=== PATIENT | female | born 1990 | race Caucasian/White ===

== ENCOUNTER 2020-05-29 18:29 | Inpatient (IN) | payer MEDICAID ==
[~2020-05-29 18:29] MED LIST: KETOROLAC TROMETHAMINE 60 MG/2 ML SDV ONE; ONDANSETRON HCL INJ/PF 4 MG/2 ML SDV ONE; PHENYLEPHRINE HCL INJ/PF 10 MG/1 ML SDV ONE
[2020-05-29] MEDS ORDERED: RINGERS SOLUTION,LACTATED 1,000 ML IV PRN ×2 (19:18→21:05)
[2020-05-29] MEDS ORDERED: RINGERS SOLUTION,LACTATED 1,000 ML IV ONE (19:18)
--- NOTE | 2020-05-29 19:40 | Admission Physical ---
Datetime Report Generated by CPN: 05/29/2020 19:40 CURRENT ADMISSION Chief Complaint: Suspected Ruptured Membranes Indication for Induction: Not Applicable Admit Impression : , Intrauterine ; Ruptured Membranes Admit Plan: Initiate Section Protocol ALLERGIES Medication Allergies: No Medication Allergies: No Known Allergies (05/29/2020) Latex: No Latex Allergies Food Allergies: NKFA Environmental Allergies: Some adhesives/tapes OBSTETRICAL HISTORY EDC: 06/21/2020 00:00 : 4 Para: 1 Term: 1 : 0 SAB: 2 IAB: 0 Ectopic: 0 Livin Cesareans: 1 VBACs: 0 Multiple Births: 0 Hx Previous C/S: Yes Obstetrical History Comments: G1 12/15/08 BB 37weeks breech presentation, pre-eclampsia PCS, spinal G2 SAB 10/2010 G3 SAB 03/01/2012 G4 Current SEE RECORDS Alcohol: No Marijuana : No Cocaine: No Other Illicit Drugs: No Cigarettes: Former Smoker. [id number] PHYSICAL EXAM General: Normal HEENT: Normal Neurologic: Normal Thyroid: Normal Heart: Normal Lungs: Normal Breast: Deferred Back: Normal Abdomen: Normal Genitourinary Exam: Normal Extremities: Normal DTRs: Normal Pelvic Type: Adequate FETUS A EGA: 36.5 INFORMED CONSENT Signature: with User ID: [email or web address]
[2020-05-29 19:47] LABS: ABSOLUTE EOSINOPHILS # (AUTO) 0.2 10^3/uL (0.0-0.6); ABSOLUTE LYMPHOCYTES (AUTO) 1.7 10^3/uL (0.5-4.7); ABSOLUTE MONOCYTES (AUTO) 0.6 10^3/uL (0.1-1.4); ABSOLUTE NEUT (AUTO) 6.7 10^3/uL (1.7-8.2); BASOPHILS % (AUTO) 0.2 % (0-2); EOSINOPHILS % (AUTO) 2.1 % (0-6); HEMATOCRIT 34.1 % (36.0-47.0); HEMOGLOBIN 11.3 g/dL (12.0-15.5); LYMPHOCYTES % (AUTO) 18.2 % (13-45); MEAN CORPUSCULAR HEMOGLOBIN 24.9 pg (27.0-33.4); MEAN CORPUSCULAR HGB CONC 33.2 g/dL (32.0-36.0); MEAN CORPUSCULAR VOLUME 75 fl (80-97); MONOCYTES % (AUTO) 6.3 % (3-13); PLATELET COUNT 226 10^3/uL (150-450); RED BLOOD COUNT 4.55 10^6/uL (3.72-5.28); RED CELL DISTRIBUTION WIDTH 14.7 % (11.5-14.0); SEGMENTED NEUTROPHILS % (AUTO) 73.2 % (42-78); TOTAL CELLS COUNTED % (AUTO) 100 %; WHITE BLOOD COUNT 9.2 10^3/uL (4.0-10.5)
[2020-05-29] MEDS ORDERED: CEFAZOLIN 2 GM/D5W RTU 2 GM/50 ML RTUPB IV ONE (20:03)
[2020-05-29] MEDS ORDERED: CITRIC ACID/SODIUM CITRATE ORAL SOLN 15 ML UDCUP ONE (20:03)
[2020-05-29] MEDS ORDERED: ACETAMINOPHEN 1,000 MG/100 ML RTUPB IV ONE (20:03)
[2020-05-29] MEDS ORDERED: OXYTOCIN 10 UNIT/ML VIAL ONE (20:08)
[2020-05-29 20:12] LABS: APPEARANCE,URINE SLIGHTLY-CLOUDY; BILIRUBIN,URINE NEGATIVE (NEGATIVE); COLOR,URINE YELLOW; GLUCOSE, URINE NEGATIVE (NEGATIVE); KETONES,URINE NEGATIVE (NEGATIVE); LEUKOCYTE ESTERASE,URINE NEGATIVE (NEGATIVE); NITRITE,URINE NEGATIVE (NEGATIVE); PROTEIN,URINE 100 mg/dL (NEGATIVE); URINE SPECIFIC GRAVITY 1.023
[2020-05-29 20:30] LABS: URINE AMPHETAMINES SCREEN NEGATIVE; URINE BARBITURATES SCREEN NEGATIVE; URINE BENZODIAZEPINES SCREEN NEGATIVE; URINE MARIJUANA (THC) SCREEN NEGATIVE; URINE METHADONE SCREEN NEGATIVE; URINE PHENCYCLIDINE SCREEN NEGATIVE
[2020-05-29 20:40] LABS: URINE COCAINE SCREEN NEGATIVE
[2020-05-29] MEDS ORDERED: OXYTOCIN/0.9 % SODIUM CHLORIDE 30 UNIT/500 ML RTUINJ IV PRN (21:05)
[2020-05-29] MEDS ORDERED: ACETAMINOPHEN 1,000 MG/100 ML RTUPB IV PRN (21:05)
[2020-05-29] MEDS ORDERED: SIMETHICONE 80 MG TAB.CHEW PO PRN (21:05)
[2020-05-29] MEDS ORDERED: MORPHINE SULFATE 10 MG/ML INJ IM PRN (21:05)
[2020-05-29] MEDS ORDERED: MEASLES,MUMPS&RUBELLA VACC/PF 0.5 ML VIAL SUBCUT PRN (21:05)
[2020-05-29] MEDS ORDERED: DIPH/PERTUSS(ACELL)/TETANUS VAC/PF 0.5 ML SYR (>=10YO) IM PRN (21:05)
[2020-05-29] MEDS ORDERED: ACETAMINOPHEN 325 MG TABLET PO PRN (21:05)
[2020-05-29] MEDS ORDERED: PROMETHAZINE HCL INJ 25 MG/1 ML VIAL IV PRN (21:05)
--- NOTE | 2020-05-29 21:05 | Operative Report ---
Operative Report DATE OF SURGERY: 05/29/20 PREOPERATIVE DIAGNOSIS: IUP prior and rupture membranes POSTOPERATIVE DIAGNOSIS: Same OPERATION: Repeat low transverse delivery of a viable male weight 8 pounds 4 ounces SURGEON: KATE VALLES ANESTHESIA: Spinal TISSUE REMOVED OR ALTERED: Placenta ESTIMATED BLOOD LOSS: 1000 cc PROCEDURE: The patient was taken to the operating room where spinal anesthesia was obtained and found to be adequate. She was then prepped and draped in the normal sterile fashion and placed in the dorsal supine position with a leftward tilt. A Pfannenstiel skin incision was then made and carried through to the underlying layers of the fascia with the scalpel. The fascia was incised in the midline and the incision extended laterally with the Deshpande scissors. The superior aspect of the fascial incision was then grasped with Jordin clamps elevated and the underlying rectus muscles dissected off bluntly. Attention was then turned to the inferior aspect of the fascial incision which in a similar fashion was grasped, tented up with Khushboo clamps, and the rectus muscles dissected off bluntly. The rectus muscles were then in the midline and the peritoneum at the amount identified and entered bluntly. The peritoneal incision was then extended superiorly and inferiorly with good visualization of the bladder. [The bladder blade was inserted and the vesicouterine peritoneum identified grasped with [place] Islander pickups and entered sharply with the Metzenbaum scissors. His incision was then extended laterally with the Metzenbaum scissors and a bladder flap created digitally. The bladder blade was then reinserted and the lower uterine segment incised in a transverse fashion with the scalpel. The uterine incision was then extended bluntly. The bladder blade was removed and the infant's head was delivered from cephalic presentation atraumatically. The nose and mouth were suctioned and the cord doubly clamped and cut. And the was handed off to waiting pediatricians. The placenta was then delivered manully and the uterus exteriorized and cleared of all clots and debris. The uterine incision was then repaired with 1-0 Vicryl in a running locked fashion. A second layer of the same suture was used to obtain hemostasis via imbrication of the initial layer. The uterus was returned to the patient's abdomen. The gutters were cleared of all clots and debris. All operative sites were noted to be hemostatic. The fascia was reapproximated with 0 Vicryl in a running fashion from each lateral edge to the midline. The patient tolerated the procedure well. Sponge lap needle and instrument counts are correct -2. 2 g of Ancef were given prior to skin incision. The patient was taken to the recovery area awake and in stable condition.
--- NOTE | 2020-05-29 21:56 | Delivery Summary ---
Del Sum A-C Datetime Report Generated by CPN: 05/29/2020 21:56 DELIVERY PERSONNEL DELIVERY PERSONNEL: [id number] Delivery Doctor:: Beau Dent MD ORTHOPEDIC CODER:: Lorena ORTHOPEDIC CODER Labor and Delivery Nurse:: JAMESON Alex Qi Specialist:: Vandana Neal, RNC Nurse Practitioner:: LAN Devi Nursery Nurse:: Pippa Red RN Systems Technician/RETAIL SALES CONSULTANT: Varsha Smith, SANITATION ENGINEER Systems Technician/RETAIL SALES CONSULTANT: Pat Ross, ST MATERNAL INFORMATION Delivery Anesthesia: Spinal Estimated Blood Loss (ml): 500 Maternal Complications: Premature Rupture of Membranes LABOR SUMMARY EDC: 06/21/2020 00:00 No. Babies in Womb: 1 Attempted: No Labor Anesthesia: None LABOR INFORMATION Reason for Induction: Not Applicable Oxytocin: N/A Group B Beta Strep: Positive Antibiotics # of Doses: 0 Antibiotics Time of Last Dose: 05/29/2020 20:19 Name of Antibiotic Given: Ancef 2018 MEMBRANES Membranes Rupture Method: Spontaneous Rupture of Membranes: 05/29/2020 17:30 Length of Rupture (hr): 3.15 Amniotic Fluid Color: Clear Amniotic Fluid Amount: Moderate Amniotic Fluid Odor: None STAGES OF LABOR Stage 3 hr: 0 Stage 3 min: 1 VAGINAL DELIVERY Episiotomy: None Laceration #1: None Laceration Extension #1: N/A Sponge Count Correct: Yes Sharps Count Correct: Yes CSECTION DELIVERY Primary Indication: Repeat Elective Secondary Indication: ROM CSection Urgency: Non-Scheduled CSection Incidence: Repeat Labor: No Labor Elective: Elective CSection Incision: Lower Uterine Transverse BABY A INFORMATION Delivery Date/Time: 05/29/2020 20:39 Method of Delivery: Nurse Controlled Delivery: No Born in Route : No : N/A Forceps: N/A Vacuum Extraction: N/A Shoulder Dystocia : No PRESENTATION/POSITION BABY A Presentation: Cephalic Cephalic Presentation: Vertex Breech Presentation: N/A PLACENTA INFORMATION BABY A Placenta Delivery Time : 05/29/2020 20:40 Placenta Method of Delivery: Spontaneous Placenta Status: Delivered SCORES BABY A Heart Rate 1 min: >100 bpm Resp Effort 1 min: Slow, Irregular Reflex Irritability 1 min: Cough or Sneeze or Pulls Away Muscle Tone 1 min: Active Motion Color 1 min: Body [place], Extremities Blue SCORE 1 MIN: 8 Heart Rate 5 min: >100 bpm Resp Effort 5 min: Good Cry Reflex Irritability 5 min: Cough or Sneeze or Pulls Away Muscle Tone 5 min: Active Motion Color 5 min: Body [place], Extremities Blue SCORE 5 MIN: 9 INFORMATION BABY A Gestational Age at Delivery: 36.5 Gestational Status: Late - 34- 36.6 Weeks Infant Outcome : Liveborn Infant Condition : Stable Sex: Male WEIGHT/LENGTH BABY A Infant Birthweight (gm): 3755 Weight (lb): 8 Weight (oz): 4 Length (in): 20.00 Length (cm): 50.80 CORD INFORMATION BABY A No. Cord Vessels: 3 Nuchal Cord : N/A Cord Blood Taken: Yes-For Storage (Mom's Blood type +) Infant Suction: Mouth; Nose ASSESSMENT BABY A Complications: None Physical Findings at Delivery: Within Normal Limits Skin to Skin: Yes Skin to Skin Time (min): 30 Transferred To: Nursery BABY B INFORMATION : N/A SIGNATURES Signature: with User ID: [email or web address]
--- NOTE | 2020-05-29 21:56 | Birth Certificate Data ---
Cert Data Datetime Report Generated by CPRuth: 05/29/2020 21:56 CERTIFICATE DATA Delivery Provider: Beau Dent MD (05/29/2020 21:37:Vandana Neal RNC) 47a. Care: Yes (05/29/2020 18:45:Matilde Jason RN) 47b. Date of First Visit: 12/13/2019 00:00 (05/29/2020 18:45:Matilde Jason RN) 47c. Date of Last Visit: 05/29/2020 00:00 (05/29/2020 18:45:Matilde Jason RN) 47d. Number of Visits: 9 (05/29/2020 18:45:Matilde Jason RN) 48a. Number of Prev Live Births: 1 (05/29/2020 18:45:Matilde Jason RN) 48b. Now Livin (05/29/2020 18:45:Matilde Jason RN) 48c. Live Births Now : 0 (05/29/2020 18:45:QS system process) 48d. Date of Last Live : 12/15/2008 00:00 (05/29/2020 18:45:Matilde Jason RN) 48e. Losses: 2 (05/29/2020 18:45:Matilde Jason RN) 48f. Date of Last Preg Loss: 03/01/2012 00:00 (05/29/2020 18:45:Matilde Jason RN) RISK FACTORS IN THIS 49a. Diabetes: No (05/29/2020 18:45:JAMESON Alex) 49b. Hypertension: Yes (05/29/2020 18:45:JAMESON Alex) Type of Hypertension: Gestational (PIH, Pre-eclampsia) (05/29/2020 18:45:Matilde Jason RN) 49c. Previous Births: 0 (05/29/2020 18:45:Matilde Jason RN) 49d. Stillborns: No (05/29/2020 18:45:JAMESON Alex) 49d. IUGR: No (05/29/2020 18:45:JAMESON Alex) 49e. Infertility Treatment: No (05/29/2020 18:45:JAMESON Alex) 49f. Previous Cesareans: 1 (05/29/2020 18:45:Matilde Jason RN) Mother's Height 50b. Height Inches: 62 (05/29/2020 19:18:QS system process) Mother's Weight 51a. Pre- Weight (lbs): 198 (05/29/2020 18:45:Matilde Jason RN) 51b. Weight at Delivery (lbs): 238 (05/29/2020 19:18:QS system process) 52. Dt Last Normal Menses Began: 08/21/2019 00:00 (05/29/2020 18:45:Matilde Jason RN) Infections Present/Treated 53a. Gonorrhea: No (05/29/2020 18:45:JAMESON Alex) Results this Hospital Visit : Negative (05/29/2020 18:45:Matilde Jason RN) 53b. Syphilis: No (05/29/2020 18:45:JAMESON Alex) 53c. Chlamydia: No (05/29/2020 18:45:JAMESON Alex) Results this Hospital Visit: Negative (05/29/2020 18:45:Matilde Jason RN) 53d. Hepatitis B: No (05/29/2020 18:45:JAMESON Alex) Results this Hospital Visit: Negative (05/29/2020 18:45:Matilde Jason RN) 53e. Hepatitis C: Negative (05/29/2020 18:45:Matilde Jason RN) 53h. Mother Tested for HBsAG: Yes (05/29/2020 18:45:Matilde Jason RN) 53i. Date Tested: 12/13/2019 00:00 (05/29/2020 18:45:Matilde Jason RN) 53j. Test Result: Negative (05/29/2020 18:45:Matilde Jason RN) Obstetric Procedures 54a, b, c. Obstetric Procedures: Ultrasound (05/29/2020 18:45:JAMESON Alex) Cigarette Smoking Cigarette Smoking: Former Smoker. [id number] (05/29/2020 18:45:Matilde Jason RN) 55a. 3 Months Before Preg - Ci (05/29/2020 18:45:JAMESON Alex) 55b. 1st Trimester of Preg- Ci (05/29/2020 18:45:JAMESON Alex) 55c. 2nd Trimester of Preg- Ci (05/29/2020 18:45:JAMESON Alex) 55d. 3rd Trimester of Preg- Ci (05/29/2020 18:45:JAMESON Alex) Onset of Labor 56a. PROM >12 Hrs: 3.15 (05/29/2020 18:45:QS system process) 57a. Induction of Labor: N/A (05/29/2020 18:45:JAMESON Alex) 57c. Non-Vertex Presentation A: Vertex (05/29/2020 18:45:JAMESON Alex) 57e. Antibiotics During Labor: 05/29/2020 20:19 (05/29/2020 18:45:JAMESON Alex) 57f. Mat [place] or Temp >100.4: 98.4 (05/29/2020 18:45:JAMESON Alex) 57g. Moderate/Heavy Meconium: Clear (05/29/2020 18:45:JAMESON Alex) 57h. Intolerance of Labor: Repeat Elective (05/29/2020 18:45:Beau Dent MD ([facility])) : ROM (05/29/2020 18:45:Beau Dent MD ([facility])) 57i. Epidural/Spinal Anesthesia: None (05/29/2020 18:45:JAMESON Alex) Method of Delivery 58a. Forceps - Unsuccessful A: N/A (05/29/2020 18:45:JAMESON Alex) 58b. Vacuum - Unsuccessful A: N/A (05/29/2020 18:45:JAMESON Alex) 58c. Presentation at 58c. Presentation at - A : Vertex (05/29/2020 18:45:Vandana Bellavance, RNC) 58c. Presentation at - A : N/A (05/29/2020 18:45:Vandana Bellavance, RNC) 58c. Presentation at - A : Cephalic (05/29/2020 18:45:Vandana Bellavance, RNC) Final Route and Method of Del 58d. Baby A Route/Delivery: (05/29/2020 18:45:Vandana Bellavance, RNC) 58e. Trial of Labor Attempted: No (05/29/2020 18:45:Vandana Bellavance, RNC) 58e. Trial of Labor Attempted A: N/A (05/29/2020 18:45:Vandana Bellavance, RNC) 58e. Trial of Labor Attempted B: N/A (05/29/2020 18:45:Vandana Bellavance, RNC) Maternal Morbidity 59b. 3rd or 4th Degree Lacs: None (05/29/2020 18:45:Vandana Bellavance, RNC) Birthweight Baby A: 3755 (05/29/2020 18:45:Kaylendb Delarosa, RN) 60a. Pounds : 8 (05/29/2020 18:45:QS system process) 60b. Ounces: 4 (05/29/2020 18:45:QS system process) 61. GA at Delivery Baby A: 36.5 (05/29/2020 18:45:Vandana Bellavance, RNC) : Late - 34- 36.6 Weeks (05/29/2020 18:45:QS system process) 62a. 5 Minute Baby A: 9 (05/29/2020 18:45:QS system process)
[2020-05-29] MEDS ORDERED: MORPHINE SULFATE 10 MG/ML INJ ONE (22:14)
[2020-05-29] MEDS ORDERED: OXYTOCIN/0.9 % SODIUM CHLORIDE 30 UNIT/500 ML RTUINJ ONE (23:30)
[2020-05-30] MEDS: KETOROLAC TROMETHAMINE INJ/PF 30 MG/1 ML SDV IV SCH ×3 (00:08→13:56)
[2020-05-30] MEDS: OXYCODONE-ACETAMINOPHEN 5-325 MG TABLET PO PRN ×5 (00:12→22:49)
[2020-05-30] MEDS: IBUPROFEN 800 MG TABLET PO SCH ×5 (01:37→23:00)
[2020-05-30 08:38] LABS: HEMATOCRIT 23.8 % (36.0-47.0); MEAN CORPUSCULAR HEMOGLOBIN 24.9 pg (27.0-33.4); MEAN CORPUSCULAR VOLUME 76 fl (80-97); PLATELET COUNT 190 10^3/uL (150-450); RED BLOOD COUNT 3.15 10^6/uL (3.72-5.28); RED CELL DISTRIBUTION WIDTH 14.4 % (11.5-14.0); WHITE BLOOD COUNT 10.9 10^3/uL (4.0-10.5)
[2020-05-30 08:47] LABS: HEMOGLOBIN 7.8 g/dL (12.0-15.5)
[2020-05-30] MEDS ORDERED: NORMAL SALINE 250 ML IV PRN ×4 (09:09→20:17)
[2020-05-30] MEDS: PRENATAL VITAMIN W DHA CAPSULE PO SCH (09:40)
[2020-05-30] MEDS: DOCUSATE SODIUM 100 MG CAPSULE PO SCH ×2 (09:40→17:34)
--- NOTE | 2020-05-30 11:05 | PDOC PROGRESS REPORT ---
Subjective-OB Progress Note for:: 05/30/20 Subjective: Doing well, no c/o, discussed with pt anemia and need to receive blood and she agrees, eating and drinking well, Physical Exam (OB) Vital Signs: Temp Pulse Resp BP Pulse Ox 97.9 F 114 H 18 135/74 H 99 05/30/20 09:05 05/30/20 07:00 05/30/20 07:00 05/30/20 07:00 05/30/20 07:00 Intake & Output 05/29/20 05/30/20 05/31/20 06:59 06:59 06:59 Intake Total 500 0 Output Total 210 100 Balance 290 -100 Weight 107.8 kg - PIH/Pre-Eclampsia Clonus: Negative Headache: Absent Epigastric Pain: No Visual Changes: No - Dressing Removed: No Incision: Dressing, Draining - Maternal Morbidity 59. Maternal Morbidity (serious complications experinced by the mother associated with labor and delivery: Maternal transfusion - Lochia Lochia Amount: Small 10-25 ml Lochia Color: Rubra/Red - Abdomen Description: Firm Hernia Present: No Fundal Description: Firm Fundal Height: u/u - u/2 Abdomen Note: waffle dsg saturated, remove dressing and no bleeding from incision, well approximated, another waffle dsg applied, mother in room with baby Objective-Diagnostic Laboratory: 05/30/20 07:56 05/29/20 05/29/20 05/29/20 19:05 19:22 19:22 WBC 9.2 RBC 4.55 Hgb 11.3 L Hct 34.1 L MCV 75 L MCH 24.9 L MCHC 33.2 RDW 14.7 H Plt Count 226 Seg Neutrophils % 73.2 Urine Color YELLOW Urine Appearance SLIGHTLY-CLOUDY Urine pH 6.0 Ur Specific [place] 1.023 Urine Protein 100 H Urine Glucose (UA) NEGATIVE Urine Ketones NEGATIVE Urine Blood NEGATIVE Urine Nitrite NEGATIVE Ur Leukocyte Esterase NEGATIVE Blood Type B POSITIVE Antibody Screen NEGATIVE 05/30/20 07:56 WBC 10.9 H RBC 3.15 L Hgb 7.8 L D Hct 23.8 L MCV 76 L MCH 24.9 L MCHC 33.0 RDW 14.4 H Plt Count 190 Seg Neutrophils % Urine Color Urine Appearance Urine pH Ur Specific [place] Urine Protein Urine Glucose (UA) Urine Ketones Urine Blood Urine Nitrite Ur Leukocyte Esterase Blood Type Antibody Screen Assessment and Plan(PN) - Assessment and Plan (1) Anemia due to acute blood loss Is this a current diagnosis for this admission?: Yes (2) GBS (group B Streptococcus carrier), +RV culture, currently Is this a current diagnosis for this admission?: Yes (3) Status post repeat low transverse section Is this a current diagnosis for this admission?: Yes - Time Spent with Patient Time with patient: Less than 15 minutes Medications reviewed and adjusted accordingly: Yes - Disposition Anticipated Discharge Disposition: Home, Self Care Anticipated Discharge Timeframe: within 24 hours
[2020-05-30] MEDS ORDERED: LEVOTHYROXINE SODIUM 0.05 MG TABLET PO ONE (14:00)
[2020-05-30] MEDS ORDERED: SERTRALINE HCL 50 MG TABLET PO ONE (19:38)
[2020-05-30 19:49] LABS: HEMATOCRIT 24.7 % (36.0-47.0); HEMOGLOBIN 8.3 g/dL (12.0-15.5); MEAN CORPUSCULAR HEMOGLOBIN 25.7 pg (27.0-33.4); MEAN CORPUSCULAR HGB CONC 33.4 g/dL (32.0-36.0); MEAN CORPUSCULAR VOLUME 77 fl (80-97); PLATELET COUNT 192 10^3/uL (150-450); RED BLOOD COUNT 3.22 10^6/uL (3.72-5.28); RED CELL DISTRIBUTION WIDTH 15.4 % (11.5-14.0); WHITE BLOOD COUNT 9.9 10^3/uL (4.0-10.5)
[2020-05-30] MEDS: HYDROXYZINE PAMOATE 50 MG CAPSULE PO SCH (21:58)
[2020-05-31] MEDS: OXYCODONE-ACETAMINOPHEN 5-325 MG TABLET PO PRN ×5 (04:13→22:12)
[2020-05-31] MEDS: IBUPROFEN 800 MG TABLET PO SCH ×3 (05:41→17:47)
[2020-05-31] MEDS: LEVOTHYROXINE SODIUM 0.05 MG TABLET PO SCH (05:41)
[2020-05-31 07:50] LABS: HEMATOCRIT 29.5 % (36.0-47.0); HEMOGLOBIN 9.8 g/dL (12.0-15.5); MEAN CORPUSCULAR HEMOGLOBIN 26.1 pg (27.0-33.4); MEAN CORPUSCULAR HGB CONC 33.2 g/dL (32.0-36.0); MEAN CORPUSCULAR VOLUME 79 fl (80-97); PLATELET COUNT 194 10^3/uL (150-450); RED BLOOD COUNT 3.76 10^6/uL (3.72-5.28); RED CELL DISTRIBUTION WIDTH 15.8 % (11.5-14.0); WHITE BLOOD COUNT 11.2 10^3/uL (4.0-10.5)
[2020-05-31] MEDS ORDERED: INFLUENZA QUAD (6MOS+) 2020-21 VAC 0.5 ML SYR IM ONE (08:00)
--- NOTE | 2020-05-31 09:00 | PDOC PROGRESS REPORT ---
Subjective-OB Progress Note for:: 05/31/20 Subjective: Doing better today, OOB in halls and room, voiding, mom in room holding baby, having some anxiety, worry about baby and her bleeding from incision, Physical Exam (OB) Vital Signs: Temp Pulse Resp BP Pulse Ox 97.6 F 88 20 127/76 H 100 05/31/20 04:23 05/31/20 04:23 05/31/20 04:23 05/31/20 04:23 05/31/20 04:23 Intake & Output 05/30/20 05/31/20 06/01/20 06:59 06:59 06:59 Intake Total 500 3260 Output Total 210 300 Balance 290 2960 Weight 107.8 kg - PIH/Pre-Eclampsia DTR's: 1 + Clonus: Negative Headache: Absent Epigastric Pain: No Visual Changes: No - Dressing Removed: No Incision: Dressing Closure Type: pressure - Maternal Morbidity 59. Maternal Morbidity (serious complications experinced by the mother associated with labor and delivery: Maternal transfusion - Lochia Lochia Amount: Scant < 10 ml Lochia Color: Rubra/Red - Abdomen Description: Soft, Round Hernia Present: No Fundal Description: Firm, Midline Fundal Height: u/u - u/2 Objective-Diagnostic Laboratory: 05/31/20 07:29 05/29/20 05/30/20 05/31/20 19:22 19:45 07:29 WBC 9.9 11.2 H RBC 3.22 L 3.76 Hgb 8.3 L 9.8 L Hct 24.7 L 29.5 L MCV 77 L 79 L MCH 25.7 L 26.1 L MCHC 33.4 33.2 RDW 15.4 H 15.8 H Plt Count 192 194 Blood Type B POSITIVE Antibody Screen NEGATIVE Assessment and Plan(PN) - Assessment and Plan (1) Anemia due to acute blood loss Is this a current diagnosis for this admission?: Yes (2) GBS (group B Streptococcus carrier), +RV culture, currently Is this a current diagnosis for this admission?: Yes (3) Status post repeat low transverse section Is this a current diagnosis for this admission?: Yes - Time Spent with Patient Time with patient: Less than 15 minutes Medications reviewed and adjusted accordingly: Yes - Disposition Anticipated Discharge Disposition: Home, Self Care Anticipated Discharge Timeframe: within 24 hours
[2020-05-31] MEDS: DOCUSATE SODIUM 100 MG CAPSULE PO SCH ×2 (09:19→17:46)
[2020-05-31] MEDS: PRENATAL VITAMIN W DHA CAPSULE PO SCH (09:19)
[2020-05-31] MEDS ORDERED: ESCITALOPRAM OXALATE 10 MG TABLET PO SCH (10:00)
[2020-05-31] MEDS: HYDROXYZINE PAMOATE 50 MG CAPSULE PO SCH (21:58)
[2020-06-01] MEDS: IBUPROFEN 800 MG TABLET PO SCH ×2 (00:19→06:26)
[2020-06-01] MEDS: OXYCODONE-ACETAMINOPHEN 5-325 MG TABLET PO PRN ×3 (02:14→10:40)
[2020-06-01] MEDS: LEVOTHYROXINE SODIUM 0.05 MG TABLET PO SCH (06:26)
--- NOTE | 2020-06-01 09:48 | PDOC PROGRESS REPORT ---
Subjective-OB Progress Note for:: 06/01/20 Subjective: Doing well today, ready to go home, hsb at BS, no anxiety, just c/o of edema in legs and ankles, eating and drinking well, has help at home, no concerns about depression pr anxirty Physical Exam (OB) Vital Signs: Temp Pulse Resp BP Pulse Ox 98.0 F 117 H 18 148/82 H 99 06/01/20 09:20 06/01/20 07:34 06/01/20 07:34 06/01/20 07:34 06/01/20 07:34 Intake & Output 05/31/20 06/01/20 06/02/20 06:59 06:59 06:59 Intake Total 3260 1325 Output Total 300 Balance 2960 1325 - PIH/Pre-Eclampsia DTR's: 1 + Clonus: Negative Headache: Absent Epigastric Pain: No Visual Changes: No - Dressing Removed: No - OPSITE Incision: Dressing Closure Type: opsite - Maternal Morbidity 59. Maternal Morbidity (serious complications experinced by the mother associated with labor and delivery: Maternal transfusion - Lochia Lochia Amount: Small 10-25 ml Lochia Color: Rubra/Red - Abdomen Description: Tender Hernia Present: No Fundal Description: Firm Fundal Height: u/u - u/2 Objective-Diagnostic Laboratory: 05/31/20 07:29 Assessment and Plan(PN) - Assessment and Plan (1) Anemia due to acute blood loss Is this a current diagnosis for this admission?: Yes (2) GBS (group B Streptococcus carrier), +RV culture, currently Is this a current diagnosis for this admission?: Yes (3) Status post repeat low transverse section Is this a current diagnosis for this admission?: Yes - Time Spent with Patient Time with patient: Less than 15 minutes Medications reviewed and adjusted accordingly: Yes - Disposition Anticipated Discharge Disposition: Home, Self Care Anticipated Discharge Timeframe: within 24 hours - home today
--- NOTE | 2020-06-01 09:57 | PDOC DISCHARGE SUMMARY ---
Impression - Admit/DC Date/PCP Admission Date/Primary Care Provider: 05/29/20 19:52 KATE VALLES MD Discharge Date: 06/01/20 - Discharge Diagnosis (1) Anemia due to acute blood loss Is this a current diagnosis for this admission?: Yes (2) GBS (group B Streptococcus carrier), +RV culture, currently Is this a current diagnosis for this admission?: Yes (3) Status post repeat low transverse section Is this a current diagnosis for this admission?: Yes - Additional Information Resuscitation Status: Full Code Discharge Diet: As Tolerated, Regular Discharge Activity: Activity As Tolerated, No Lifting Over 10 Pounds, No Lifting/Push/Pulling, Pelvic Rest, Walk Frequently Referrals: KATE VALLES MD [Primary Care Provider] - (1 week) Prescriptions: Oxycodone HCl/Acetaminophen [Percocet 5-325 mg Tablet] 1 tab PO Q4HP PRN #20 tablet PRN Reason: Furosemide [Lasix 20 mg Tablet] 20 mg PO DAILY 5 Days #5 tablet Escitalopram Oxalate [Lexapro 10 mg Tablet] 10 mg PO DAILY #30 tablet Home Medications: Vit,Calc76/Iron/Folic [Prenatabs Rx Tablet] 1 tab PO DAILY 05/30/20 Escitalopram Oxalate [Lexapro 10 mg Tablet] 10 mg PO DAILY #30 tablet 06/01/20 Furosemide [Lasix 20 mg Tablet] 20 mg PO DAILY 5 Days #5 tablet 06/01/20 Levothyroxine Sodium [Synthroid 0.05 mg Tablet] 0.05 mg PO Q6AM tablet 06/01/20 Oxycodone HCl/Acetaminophen [Percocet 5-325 mg Tablet] 1 tab PO Q4HP PRN #20 tablet 06/01/20 HPI Gestational Age: 36.5 Reason(s) for Admission: Ceasarean Section-Primary, PROM Admission Note: Breech Procedures: NST, Ultrasound Intrapartum Procedure(s): : Low Cervical, Transverse - home today, use binder and pad over incision Hospital Course Hospital Course: PPH, received blood, edema in legs and feet 59. Maternal Morbidity (serious complications experinced by the mother associated with labor and delivery: Maternal transfusion Results Laboratory Results: WBC 11.2 10^3/uL (4.0-10.5) H 05/31/20 07:29 RBC 3.76 10^6/uL (3.72-5.28) 05/31/20 07:29 Hgb 9.8 g/dL (12.0-15.5) L 05/31/20 07:29 Hct 29.5 % (36.0-47.0) L 05/31/20 07:29 MCV 79 fl (80-97) L 05/31/20 07: MCH 26.1 pg (27.0-33.4) L 05/31/20 07: MCHC 33.2 g/dL (32.0-36.0) 05/31/20 07: RDW 15.8 % (11.5-14.0) H 05/31/20:29 Plt Count 194 10^3/uL (150-450) 05/31/20 07: Lymph % (Auto) 18.2 % (13-45) 05/29/20 19:22 [place] % (Auto) 6.3 % (3-13) 05/29/20 19: Eos % (Auto) 2.1 % (0-6) 05/29/20 19:22 Baso % (Auto) 0.2 % (0-2) 05/29/20 19:22 Absolute Neuts (auto) 6.7 10^3/uL (1.7-8.2) 05/29/20 19:22 Absolute Lymphs (auto) 1.7 10^3/uL (0.5-4.7) 05/29/20 19:22 Absolute Monos (auto) 0.6 10^3/uL (0.1-1.4) 05/29/20 19:22 Absolute Eos (auto) 0.2 10^3/uL (0.0-0.6) 05/29/20 19:22 Absolute Basos (auto) 0.0 10^3/uL (0.0-0.2) 05/29/20 19:22 Seg Neutrophils % 73.2 % (42-78) 05/29/20 19:22 Urine Color YELLOW 05/29/20 19:05 Urine Appearance SLIGHTLY-CLOUDY 05/29/20 19:05 Urine pH 6.0 (5.0-9.0) 05/29/20 19:05 Ur Specific [place] 1.023 05/29/20 19:05 Urine Protein 100 mg/dL (NEGATIVE) H 05/29/20 19:05 Urine Glucose (UA) NEGATIVE mg/dL (NEGATIVE) 05/29/20 19:05 Urine Ketones NEGATIVE mg/dL (NEGATIVE) 05/29/20 19:05 Urine Blood NEGATIVE (NEGATIVE) 05/29/20 19:05 Urine Nitrite NEGATIVE (NEGATIVE) 05/29/20 19:05 Urine Bilirubin NEGATIVE (NEGATIVE) 05/29/20 19:05 Urine Urobilinogen 2.0 mg/dL (<2.0) H 05/29/20 19:05 Ur Leukocyte Esterase NEGATIVE (NEGATIVE) 05/29/20 19:05 Urine Ascorbic Acid NEGATIVE (NEGATIVE) 05/29/20 19:05 Membranes Rupture POSITIVE (NEGATIVE) H 05/29/20 19:05 Urine Opiates Screen NEGATIVE 05/29/20 19:05 Urine Methadone Screen NEGATIVE 05/29/20 19:05 Ur Barbiturates Screen NEGATIVE 05/29/20 19:05 Ur Phencyclidine Scrn NEGATIVE 05/29/20 19:05 Ur Amphetamines Screen NEGATIVE 05/29/20 19:05 U Benzodiazepines Scrn NEGATIVE 05/29/20 19:05 Urine Cocaine Screen NEGATIVE 05/29/20 19:05 U Marijuana (THC) Screen NEGATIVE 05/29/20 19:05 RPR NONREACTIVE (NONREACTIVE) 05/29/20 19:22 Blood Type B POSITIVE 05/29/20 19:22 Blood Type Confirm B POSITIVE 05/29/20 19:22 Antibody Screen NEGATIVE 05/29/20 19:22 Crossmatch See Detail 05/29/20 19:22 Plan Health Concerns: bleeding from incision Plan of Treatment: rev S&S to report, use binder and pad over incision, Goals: no complications Time Spent: Less than 30 Minutes
[2020-06-01] MEDS ORDERED: FUROSEMIDE 20 MG TABLET PO SCH (10:00)
[2020-06-01] MEDS: PRENATAL VITAMIN W DHA CAPSULE PO SCH (10:04)
[2020-06-01] MEDS: DOCUSATE SODIUM 100 MG CAPSULE PO SCH (10:05)
[2020-06-01] MEDS ORDERED: ACETAMINOPHEN WITH CODEINE #3 TABLET PO PRN (10:31)
[2020-06-01 11:40] VITALS: BP 137/87
== END 2020-06-01 12:04 | disposition home or self-care (01) | DRG 787 ==
LOC: LC 18:29 → LR 19:52 → 2S 23:35
PROVIDERS: ADMIT Obstetrics & Gynecology Gynecology; ATTEND Obstetrics & Gynecology Gynecology
PROC: 10D00Z1 Extraction of Products of Conception, Low, Open Approach (ICD-10-PCS; principal; 2020-05-29)
PROC: 30233N1 Transfusion of Nonautologous Red Blood Cells into Peripheral Vein, Percutaneous Approach (ICD-10-PCS; 2020-05-30)
DX: O32.1XX0 Maternal care for breech presentation, not applicable or unspecified (principal); D62 Acute posthemorrhagic anemia; O99.824 Streptococcus B carrier state complicating childbirth; Z20.828 Contact with and (suspected) exposure to other viral communicable diseases; O90.81 Anemia of the puerperium; Z28.20 Immunization not carried out because of patient decision for unspecified reason; Z87.891 Personal history of nicotine dependence; Z3A.36 36 weeks gestation of pregnancy; Z23 Encounter for immunization
CPT/HCPCS: 1961; 36415; 36430; 80307; 81005; 84112; 85025; 85027; 86592; 86850; 86900; 86901; 86920; 94760; 94799; 99140; J0131; J0690; J1885; J2270; J2370; J2405; J2590; J3490; J7120; P9016